=== PATIENT | male | born 1955 | race Caucasian/White ===

== ENCOUNTER 2018-01-10 07:46 | Emergency (ER) | payer OTHER ==
--- NOTE | 2018-01-10 08:52 | EDM.PDOC ---
ED HPI GENERAL MEDICAL PROBLEM - General Chief Complaint: Lower Extremity Injury/Pain Stated Complaint: ER Time Seen by Provider: 01/10/18 08:05 Source of Information: Reports: Patient History Limitations: Reports: No Limitations - History of Present Illness INITIAL COMMENTS - FREE TEXT/NARRATIVE: Patient reports slipping on water at work last night and twisting his ankle. He denies falling. He reports that last night he went home and elevated and iced his ankle. It is his left ankle. Some numbness reported to the area. Pain rated 8/10. Limited range of motion. Limping when he came in this morning. Onset: Sudden Onset Date: 01/09/18 Location: Reports: Lower Extremity, Left Quality: Reports: Ache, Pressure Severity: Moderate Improves with: Reports: Cold Therapy, Rest Worsens with: Reports: Movement Associated Symptoms: Reports: No Other Symptoms - Related Data Allergies Allergy/AdvReac Type Severity Reaction Status Date / Time No Known Allergies Allergy Verified 01/10/18 08:23 Home Meds: Home Meds Aspirin [Lo-Dose Aspirin EC] 1 tab PO DAILY 01/10/18 [History] Cyclobenzaprine [Flexeril] PRN 01/10/18 [History] Multivit-Min/Iron Fum/Folic AC [Nhfzh-Iixvmpn-Ytgvcujv Tablet] 1 each PO DAILY 01/10/18 [History] Review of Systems - Review of Systems Review Of Systems: See Below Constitutional: Reports: No Symptoms Eyes: Reports: No Symptoms Ears: Reports: No Symptoms Nose: Reports: No Symptoms Mouth/Throat: Reports: No Symptoms Respiratory: Reports: No Symptoms Cardiovascular: Reports: No Symptoms GI/Abdominal: Reports: No Symptoms Genitourinary: Reports: No Symptoms Musculoskeletal: Reports: Foot Pain (left ankle) Skin: Reports: No Symptoms Neurological: Reports: Numbness (reported to be slightly and intermittently to his left ankle/foot) Psychiatric: Reports: No Symptoms ED EXAM, GENERAL - Physical Exam Exam: See Below Exam Limited By: No Limitations General Appearance: Alert, WD/WN, No Apparent Distress Peripheral Pulses: 2+: Posterior Tibial (L), Posterior Tibial (R), Dorsalis Pedis (L), Dorsalis Pedis (R) Extremities: Joint Swelling, Limited Range of Motion, Other (left ankle pain on palpation, limited dorsal/plantar flexion) Neurological: Alert, Oriented, CN II-XII Intact, Normal Cognition, Normal Gait, Normal Reflexes, No Motor/Sensory Deficits Psychiatric: Normal Affect, Normal Mood Skin Exam: Ecchymosis (left lateral ankle) Lymphatic: No Adenopathy Departure - Departure Time of Disposition: 09:48 Disposition: Home, Self-Care 01 Condition: Good Clinical Impression: Fracture of distal end of left fibula - Discharge Information Instructions: Nondisplaced Fibular Ankle Fracture Treated With Immobilization, Adult Forms: ED Department Discharge Additional Instructions: You have a non displaced fibula fracture of your left ankle. I have scheduled an appointment with [facility] for January 17, at 3:20 at the [facility]. Their address is [address] [place] [address] and their phone number is [phone]. Please keep your leg in the immobilizer when walking around, keep it elevated as much as you can, try to use ice for pain and swelling. I am going to give you a day's worth of pain medications and you can also take ibuprofen or aleve as well. 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 Please call us with any questions or concerns.
[2018-01-10] MEDS: Take Home: Acetaminophen/HYDROcodone 325-10 MG, 5 Tab Pack PO ONE (09:53)
== END 2018-01-10 10:00 | disposition home or self-care (01) ==
LOC: VM.ED 07:46
DX: S82.832A Other fracture of upper and lower end of left fibula, initial encounter for closed fracture (principal); S82.52XA Displaced fracture of medial malleolus of left tibia, initial encounter for closed fracture; Z79.82 Long term (current) use of aspirin; Z79.899 Other long term (current) drug therapy; W01.0XXA Fall on same level from slipping, tripping and stumbling without subsequent striking against object, initial encounter; Y99.0 Civilian activity done for income or pay
CPT/HCPCS: 73610; 99283; A9270

== ENCOUNTER 2018-03-15 13:50 | Emergency (ER) | payer OTHER ==
[2018-03-15] MEDS ORDERED: Sodium Chloride 0.9% 10 ML Syringe FLUSH PRN (14:07)
[2018-03-15] MEDS: Diltiazem 25 MG/5 ML SDV IVPUSH ONE ×2 (14:31→15:21)
[2018-03-15 14:52] LABS: CHLORIDE,CL 105 mmol/L (98-107); SODIUM,NA 139 mmol/L (136-145)
[2018-03-15] MEDS: Furosemide 40 MG/4 ML VIAL IV ONE (15:17)
[2018-03-15] MEDS: Sodium Chloride 0.9% 1,000 ML IV SCH (15:21)
[2018-03-15] MEDS: Labetalol 20 MG/4 ML Syringe IVPUSH ONE (16:08)
--- NOTE | 2018-03-15 16:14 | EDM.PDOC ---
ED HPI GENERAL MEDICAL PROBLEM - General Chief Complaint: Cardiovascular Problem Stated Complaint: short of breath, dizzy Time Seen by Provider: 03/15/18 14:07 Source of Information: Reports: Patient History Limitations: Reports: No Limitations - History of Present Illness INITIAL COMMENTS - FREE TEXT/NARRATIVE: Patient comes in with afternoon with complaints of dizziness and shortness of breath. States he was sent to [facility] yesterday with similar complaints. He was found to be in tachycardia rates 120s to 140s. He was additionally worked up for possible pulmonary embolus due to an elevated d- dimer this CT exam was inconclusive. Today he has similar complaints with regards to dizziness and SOB, however he feels it is worse than it was yesterday. He denies recent illness, no blood in urine or stool, no headache, chest pain, abdominal pain. He does look diaphoretic. Denies prior cardiac history. Denies history of arrhythmias. Minimal history of medications. No allergies. Onset Date: 03/14/18 Duration: Getting Worse Location: Reports: Chest, Back Quality: Reports: Ache, Sharp Severity: Moderate Improves with: Reports: None Worsens with: Reports: None Context: Reports: Other Associated Symptoms: Reports: Syncope, Weakness - Related Data Allergies Allergy/AdvReac Type Severity Reaction Status Date / Time No Known Allergies Allergy Verified 03/15/18 14:26 Home Meds: Home Meds Aspirin [Lo-Dose Aspirin EC] 1 tab PO DAILY 01/10/18 [History] Multivit-Min/Iron Fum/Folic AC [Lkpwt-Galtkba-Guhgubaa Tablet] 1 each PO DAILY 01/10/18 [History] Cholecalciferol (Vitamin D3) [Vitamin D3] 1,000 unit PO DAILY 03/15/18 [History] Hydrochlorothiazide 12.5 mg PO DAILY 03/15/18 [History] Past Medical History Cardiovascular History: Reports: Hypertension Musculoskeletal History: Reports: Back Pain, Chronic Social & Family History - Family History Family Medical History: Noncontributory - Tobacco Use Smoking Status *Q: Current Every Day Smoker Years of Tobacco use: 40 Packs/Tins Daily: 1 ED ROS GENERAL - Review of Systems Review Of Systems: See Below Constitutional: Reports: No Symptoms HEENT: Reports: No Symptoms Respiratory: Reports: Shortness of Breath Cardiovascular: Reports: No Symptoms Endocrine: Reports: No Symptoms GI/Abdominal: Reports: No Symptoms : Reports: No Symptoms Musculoskeletal: Reports: No Symptoms Skin: Reports: No Symptoms Neurological: Reports: Dizziness Psychiatric: Reports: No Symptoms Hematologic/Lymphatic: Reports: No Symptoms Immunologic: Reports: No Symptoms ED EXAM, GENERAL - Physical Exam Exam: See Below Exam Limited By: No Limitations General Appearance: Alert, WD/WN, No Apparent Distress Eye Exam: Bilateral Eye: EOMI, Normal Inspection, PERRL Ears: Normal External Exam, Normal Canal, Hearing Grossly Normal, Normal TMs, Other (bilateral ) Nose: Normal Inspection, Normal Mucosa, No Blood Throat/Mouth: Normal Inspection, Normal Lips, Normal Teeth, Normal Gums, Normal Oropharynx, Normal Voice, No Airway Compromise Head: Atraumatic, Normocephalic Neck: Normal Inspection, Supple, Non-Tender, Full Range of Motion Respiratory/Chest: No Respiratory Distress, Lungs Clear, Normal Breath Sounds, No Accessory Muscle Use, Chest Non-Tender Cardiovascular: Normal Peripheral Pulses, Regular Rate, Rhythm, No Edema, No Gallop, No JVD, No Murmur, No Rub Peripheral Pulses: 2+: Posterior Tibial (L), Posterior Tibial (R), Dorsalis Pedis (L), Dorsalis Pedis (R) GI/Abdominal: Normal Bowel Sounds, Soft, Non-Tender, No Organomegaly, No Distention, No Abnormal Bruit, No Mass Back Exam: Normal Inspection, Full Range of Motion, NT Extremities: Normal Inspection, Normal Range of Motion, Non-Tender, Normal Capillary Refill, No Pedal Edema Neurological: Alert, Oriented, CN II-XII Intact, Normal Cognition, Normal Gait, Normal Reflexes, No Motor/Sensory Deficits Psychiatric: Normal Affect, Normal Mood Skin Exam: Warm, Intact, Diaphoretic Lymphatic: No Adenopathy Course - Vital Signs Last Recorded V/S: Last Vital Signs Temp 36.6 C 03/15/18 14:15 Pulse 103 H 03/15/18 16:31 Resp 16 03/15/18 16:00 BP 129/87 03/15/18 16:31 Pulse Ox 94 L 03/15/18 16:00 - Orders/Labs/Meds Orders: Active Orders 24 hr Category Date Time Status EKG 12 Lead [EKG Documentation Completion] [RC] ROUTINE Care 03/15/18 15:05 Ordered EKG 12 Lead [EKG Documentation Completion] [RC] STAT Care 03/15/18 16:29 Active EKG Documentation Completion [RC] ROUTINE Care 03/15/18 14:07 Ordered Chest 2V [CR] Stat Exams 03/15/18 14:16 Ordered CULTURE BLOOD [BC] Stat Lab 03/15/18 14:56 Ordered CULTURE BLOOD [BC] Stat Lab 03/15/18 14:56 Ordered PTH, INTACT [REF] Routine Lab 03/15/18 15:11 Ordered URINALYSIS W/MICROSCOPIC [UA W/MICROSCOPIC] [URIN] Stat Lab 03/15/18 15:18 Ordered Sodium Chloride 0.9% @ 100 MLS/HR(1000ml) Med 03/15/18 15:30 Ordered Sodium Chloride 0.9% [Normal Saline] 1,000 ml IV ASDIRECTED Sodium Chloride 0.9% [Saline Flush] Med 03/15/18 14:07 Ordered 10 ml FLUSH ASDIRECTED PRN Blood Culture x2 Reflex Set [OM.PC] Stat Oth 03/15/18 14:56 Ordered Saline Lock Insert [OM.PC] Routine Oth 03/15/18 14:07 Ordered Medication Orders Sodium Chloride (Normal Saline) 1,000 mls @ 100 mls/hr IV ASDIRECTED YAMEL Last Admin: 03/15/18 15:21 Dose: 100 mls/hr Sodium Chloride (Saline Flush) 10 ml FLUSH ASDIRECTED PRN PRN Reason: Keep Vein Open Labs: Laboratory Tests 03/15/18 03/15/18 03/15/18 Range/Units 14:16 14:16 14:16 WBC 10.2 H (4.0-10.0) x10^3/uL RBC 4.57 (4.5-6.0) x10^6/uL Hgb 15.0 (14.0-18.0) g/dL Hct 43.0 (40.0-52.0) % MCV 94.1 H (78.0-93.0) fL MCH 32.8 H (26.0-32.0) pg MCHC 34.9 (32.0-36.0) g/dL RDW Coeff of Johana 13.5 (10.0-15.0) % Plt Count 275 (130-400) x10^3/uL Neut % (Auto) 60.1 (50.0-80.0) % Lymph % (Auto) 28.9 (25.0-50.0) % Nolan % (Auto) 7.9 (2.0-11.0) % Eos % (Auto) 2.5 (0.0-4.0) % Baso % (Auto) 0.6 (0.2-1.2) % PT 11.3 (9.6-11.4) SEC INR 1.1 L (2.0-3.5) D-Dimer, Quantitative (<=0.58) mg/LFEU Sodium 139 (136-145) mmol/L Potassium 4.0 (3.5-5.1) mmol/L Chloride 105 (98-107) mmol/L Carbon Dioxide 23 (21-32) mmol/L Anion Gap 15.0 (10-20) mmol/L BUN 16 (7-18) mg/dL Creatinine 1.1 (0.70-1.30) mg/dL Est Cr Clr Drug Dosing TNP Estimated GFR (MDRD) > 60 Glucose 102 (74-106) mg/dL Lactic Acid (0.4-2.0) mmol/L Calcium 9.9 (8.5-10.1) mg/dL Corrected Calcium 10.06 (8.5-10.1) mg/dL Total Bilirubin 0.5 (0.2-1.0) mg/dL AST 13 L (15-37) U/L ALT 14 L (16-63) U/L Alkaline Phosphatase 112 (46-116) U/L Troponin I 0.021 (<=0.056) ng/mL C-Reactive Protein (<=0.9) mg/dL NT-Pro-B Natriuret Pep 1233 H (<=125) pg/mL Total Protein 7.6 (6.4-8.2) g/dL Albumin 3.8 (3.4-5.0) g/dL Globulin 3.8 Albumin/Globulin Ratio 1.00 TSH, Ultra Sensitive 1.816 (0.358-3.74) uIU/mL Urine Color (YELLOW) Urine Appearance (CLEAR) Urine pH (5.0-8.0) Ur Specific [place] Urine Protein (NEGATIVE) mg/dL Urine Glucose (UA) (NEGATIVE) mg/dL Urine Ketones (NEGATIVE) mg/dL Urine Occult Blood (NEGATIVE) Urine Nitrite (NEGATIVE) Urine Bilirubin (NEGATIVE) Urine Urobilinogen (0.2) EU/dL Ur Leukocyte Esterase (NEGATIVE) Urine RBC (NOT SEEN) /HPF Urine WBC (NOT SEEN) /HPF Ur Squamous Epith Cells (NEGATIVE) /HPF Urine Bacteria (NEGATIVE) /HPF Urine Mucus (NEGATIVE) /LPF 03/15/18 03/15/18 03/15/18 Range/Units 14:16 14:16 14:16 WBC (4.0-10.0) x10^3/uL RBC (4.5-6.0) x10^6/uL Hgb (14.0-18.0) g/dL Hct (40.0-52.0) % MCV (78.0-93.0) fL MCH (26.0-32.0) pg MCHC (32.0-36.0) g/dL RDW Coeff of Johana (10.0-15.0) % Plt Count (130-400) x10^3/uL Neut % (Auto) (50.0-80.0) % Lymph % (Auto) (25.0-50.0) % Nolan % (Auto) (2.0-11.0) % Eos % (Auto) (0.0-4.0) % Baso % (Auto) (0.2-1.2) % PT (9.6-11.4) SEC INR (2.0-3.5) D-Dimer, Quantitative 0.44 (<=0.58) mg/LFEU Sodium (136-145) mmol/L Potassium (3.5-5.1) mmol/L Chloride (98-107) mmol/L Carbon Dioxide (21-32) mmol/L Anion Gap (10-20) mmol/L BUN (7-18) mg/dL Creatinine (0.70-1.30) mg/dL Est Cr Clr Drug Dosing Estimated GFR (MDRD) Glucose (74-106) mg/dL Lactic Acid 1.2 (0.4-2.0) mmol/L Calcium (8.5-10.1) mg/dL Corrected Calcium (8.5-10.1) mg/dL Total Bilirubin (0.2-1.0) mg/dL AST (15-37) U/L ALT (16-63) U/L Alkaline Phosphatase (46-116) U/L Troponin I (<=0.056) ng/mL C-Reactive Protein 0.7 (<=0.9) mg/dL NT-Pro-B Natriuret Pep (<=125) pg/mL Total Protein (6.4-8.2) g/dL Albumin (3.4-5.0) g/dL Globulin Albumin/Globulin Ratio TSH, Ultra Sensitive (0.358-3.74) uIU/mL Urine Color (YELLOW) Urine Appearance (CLEAR) Urine pH (5.0-8.0) Ur Specific [place] Urine Protein (NEGATIVE) mg/dL Urine Glucose (UA) (NEGATIVE) mg/dL Urine Ketones (NEGATIVE) mg/dL Urine Occult Blood (NEGATIVE) Urine Nitrite (NEGATIVE) Urine Bilirubin (NEGATIVE) Urine Urobilinogen (0.2) EU/dL Ur Leukocyte Esterase (NEGATIVE) Urine RBC (NOT SEEN) /HPF Urine WBC (NOT SEEN) /HPF Ur Squamous Epith Cells (NEGATIVE) /HPF Urine Bacteria (NEGATIVE) /HPF Urine Mucus (NEGATIVE) /LPF 03/15/18 Range/Units 16:15 WBC (4.0-10.0) x10^3/uL RBC (4.5-6.0) x10^6/uL Hgb (14.0-18.0) g/dL Hct (40.0-52.0) % MCV (78.0-93.0) fL MCH (26.0-32.0) pg MCHC (32.0-36.0) g/dL RDW Coeff of Johana (10.0-15.0) % Plt Count (130-400) x10^3/uL Neut % (Auto) (50.0-80.0) % Lymph % (Auto) (25.0-50.0) % Nolan % (Auto) (2.0-11.0) % Eos % (Auto) (0.0-4.0) % Baso % (Auto) (0.2-1.2) % PT (9.6-11.4) SEC INR (2.0-3.5) D-Dimer, Quantitative (<=0.58) mg/LFEU Sodium (136-145) mmol/L Potassium (3.5-5.1) mmol/L Chloride (98-107) mmol/L Carbon Dioxide (21-32) mmol/L Anion Gap (10-20) mmol/L BUN (7-18) mg/dL Creatinine (0.70-1.30) mg/dL Est Cr Clr Drug Dosing Estimated GFR (MDRD) Glucose (74-106) mg/dL Lactic Acid (0.4-2.0) mmol/L Calcium (8.5-10.1) mg/dL Corrected Calcium (8.5-10.1) mg/dL Total Bilirubin (0.2-1.0) mg/dL AST (15-37) U/L ALT (16-63) U/L Alkaline Phosphatase (46-116) U/L Troponin I (<=0.056) ng/mL C-Reactive Protein (<=0.9) mg/dL NT-Pro-B Natriuret Pep (<=125) pg/mL Total Protein (6.4-8.2) g/dL Albumin (3.4-5.0) g/dL Globulin Albumin/Globulin Ratio TSH, Ultra Sensitive (0.358-3.74) uIU/mL Urine Color Yellow (YELLOW) Urine Appearance Clear (CLEAR) Urine pH 7.0 (5.0-8.0) Ur Specific [place] 1.015 Urine Protein Negative (NEGATIVE) mg/dL Urine Glucose (UA) Negative (NEGATIVE) mg/dL Urine Ketones Negative (NEGATIVE) mg/dL Urine Occult Blood Negative (NEGATIVE) Urine Nitrite Negative (NEGATIVE) Urine Bilirubin Negative (NEGATIVE) Urine Urobilinogen 0.2 (0.2) EU/dL Ur Leukocyte Esterase Negative (NEGATIVE) Urine RBC 0-5 (NOT SEEN) /HPF Urine WBC 0-5 (NOT SEEN) /HPF Ur Squamous Epith Cells Rare (NEGATIVE) /HPF Urine Bacteria Rare (NEGATIVE) /HPF Urine Mucus Not seen (NEGATIVE) /LPF Meds: Medications Generic Name Dose Route Start Last Admin Trade Name Freq PRN Reason Stop Dose Admin Sodium Chloride 1,000 mls @ 100 mls/hr 03/15/18 15:30 03/15/18 15:21 Normal Saline IV 100 mls/hr ASDIRECTED YAMEL Administration Sodium Chloride 10 ml 03/15/18 14:07 Saline Flush FLUSH ASDIRECTED PRN Keep Vein Open Discontinued Medications Generic Name Dose Route Start Last Admin Trade Name Freq PRN Reason Stop Dose Admin Diltiazem HCl 25 mg 03/15/18 14:18 03/15/18 14:31 Diltiazem IVPUSH 03/15/18 14:19 25 mg ONETIME ONE Administration Diltiazem HCl 15 mg 03/15/18 15:17 03/15/18 15:21 Diltiazem IVPUSH 03/15/18 15:18 15 mg ONETIME ONE Administration Furosemide 40 mg 03/15/18 15:04 03/15/18 15:17 Lasix IV 03/15/18 15:05 40 mg ONETIME ONE Administration Labetalol HCl 20 mg 03/15/18 15:49 03/15/18 16:08 Normodyne IVPUSH 03/15/18 15:50 20 mg NOW ONE Administration Protocol - Radiology Interpretation Free Text/Narrative:: Chest x-ray shows no acute cause for afib/a-flutter. Departure - Departure Time of Disposition: 16:58 Disposition: DC/Tfer to Acute Hospital 02 Reason for Transfer *Q: Other Condition: Fair Clinical Impression: Afib, Atrial flutter Instructions: Atrial Fibrillation, [id number] Referrals: Johanny Darden MD [Primary Care Provider] - Forms: ED Department Discharge, Interfacility Transfer [facility] ED Communication - ED Communication Date/Time Date: 03/15/18 Time Called: 16:30 - Discussed Case With (1) Discussed Case With (1): Admitting Provider (Discussed case with Dr. Yu at the [facility]. He will accept patient.) - Problem List & Annotations (1) Afib SNOMED Code(s): 94062603 Code(s): I48.91 - UNSPECIFIED ATRIAL FIBRILLATION Status: Acute Priority : Medium Current Visit: Yes Qualifiers: Atrial fibrillation type: unspecified Qualified Code(s): I48.91 - Unspecified atrial fibrillation (2) Atrial flutter SNOMED Code(s): 5982689 Code(s): I48.92 - UNSPECIFIED ATRIAL FLUTTER Status: Acute Priority: Medium Current Visit: Yes Qualifiers: Atrial flutter type: unspecified Qualified Code(s): I48.92 - Unspecified atrial flutter - Problem List Review Problem List Initiated/Reviewed/Updated: Yes - My Orders Last 24 Hours: My Active Orders 03/15/18 14:07 EKG Documentation Completion [RC] ROUTINE Sodium Chloride 0.9% [Saline Flush] 10 ml FLUSH ASDIRECTED PRN Saline Lock Insert [OM.PC] Routine 03/15/18 14:16 Chest 2V [CR] Stat 03/15/18 14:56 CULTURE BLOOD [BC] Stat CULTURE BLOOD [BC] Stat Blood Culture x2 Reflex Set [OM.PC] Stat 03/15/18 15:05 EKG 12 Lead [EKG Documentation Completion] [RC] ROUTINE 03/15/18 15:11 PTH, INTACT [REF] Routine 03/15/18 15:18 URINALYSIS W/MICROSCOPIC [UA W/MICROSCOPIC] [URIN] Stat 03/15/18 15:30 Sodium Chloride 0.9% @ 100 MLS/HR(1000ml) Sodium Chloride 0.9% [Normal Saline] 1 ,000 ml IV ASDIRECTED 03/15/18 16:29 EKG 12 Lead [EKG Documentation Completion] [RC] STAT - Assessment/Plan Last 24 Hours: My Active Orders 03/15/18 14:07 EKG Documentation Completion [RC] ROUTINE Sodium Chloride 0.9% [Saline Flush] 10 ml FLUSH ASDIRECTED PRN Saline Lock Insert [OM.PC] Routine 03/15/18 14:16 Chest 2V [CR] Stat 03/15/18 14:56 CULTURE BLOOD [BC] Stat CULTURE BLOOD [BC] Stat Blood Culture x2 Reflex Set [OM.PC] Stat 03/15/18 15:05 EKG 12 Lead [EKG Documentation Completion] [RC] ROUTINE 03/15/18 15:11 PTH, INTACT [REF] Routine 03/15/18 15:18 URINALYSIS W/MICROSCOPIC [UA W/MICROSCOPIC] [URIN] Stat 03/15/18 15:30 Sodium Chloride 0.9% @ 100 MLS/HR(1000ml) Sodium Chloride 0.9% [Normal Saline] 1 ,000 ml IV ASDIRECTED 03/15/18 16:29 EKG 12 Lead [EKG Documentation Completion] [RC] STAT Assessment:: atrial fib with RVR/aflutter Plan: Patient to be transferred to [facility] for further evaluation. He will be taking private vehicle.
== END 2018-03-15 17:05 | disposition short-term general hospital (02) ==
LOC: VM.ED 13:50
DX: I48.91 Unspecified atrial fibrillation (principal); I48.92 Unspecified atrial flutter; I10 Essential (primary) hypertension; F17.210 Nicotine dependence, cigarettes, uncomplicated
CPT/HCPCS: 36415; 71046; 80053; 81001; 83605; 83880; 83970; 84443; 84484; 85025; 85379; 85610; 86140; 87040; 93005; 96361; 96374; 96375; 99285; J1940; J3490; J7030